=== PATIENT | male | born 1940 | race Caucasian/White ===

== ENCOUNTER 2022-02-23 13:36 | Inpatient (IN) ==
[2022-02-23] MEDS ORDERED: SODIUM CHLORIDE 0.9% 1000ML 1,000 ML IV ONE (14:11)
--- NOTE | 2022-02-23 14:11 | Emergency Department Note ---
Impression & Plan Abdominal abscess, Abdominal pain, Leukocytosis ED Provider Note NAME: ANTONIO ALVAREZ AGE: 81 SEX: M : 1940 ARRIVES VIA: Walk-In INFORMANT: Patient ED PROVIDER(S): Mahendra Lozano DO CHIEF COMPLAINT: Weakness HPI: Patient is an 81-year-old male who presents to the ER for cough, congestion, and runny nose which started about 10 days ago. He also started to have right lower quadrant infraumbilical abdominal pain over the same time. Associate with nausea but no vomiting. Pain is worse with movement improves with rest. Denies any dysuria, urgency, or frequency. Describes as a crampy pain 5 out of 10 which is constant. He also has diffuse myalgias and arthralgias. Denies any recorded fevers but does admit to feeling hot previously. No other sick contacts. He has lost his appetite. Does have a negative COVID test at home. No open wounds or sores. No tick bites. ROS: See above HPI for pertinent positives & negatives. A total of 10 systems reviewed and were otherwise negative. PAST MEDICAL HISTORY:See Below PAST SURGICAL HISTORY:See Below FAMILY HISTORY:See Below SOCIAL HISTORY:See Below HOME MEDICATIONS:See Below ALLERGIES:See Below VITALS:See Below PHYSICAL EXAMINATION: GENERAL: Sitting up in bed, alert, well appearing, well nourished, no distress, non-toxic EYE EXAM: normal conjunctiva. OROPHARYNX: no exudate, no erythema, lips, buccal mucosa, and tongue normal and mucous membranes are moist NECK: supple, no nuchal rigidity, no adenopathy, non-tender LUNGS: Clear to auscultation. Normal chest wall mechanics HEART: no murmurs, S1 normal and S2 normal ABDOMEN: abdomen soft, TTP in RLQ, normo-active bowel sounds, no masses, no rebound or guarding. UPPER EXTREMITIES: upper extremities are grossly normal. LOWER EXTREMITIES: No pitting edema. NEURO EXAM: Normal sensorium, cranial nerves II-XII grossly intact, normal speec h, no gross weakness of arms, no gross weakness of legs. MEDICAL DECISION MAKING: Patient is an 81-year-old male who presents ER with above-stated complaint. IV was established blood work was obtained. Show leukocytosis 12,000. No anemia. BMP with mild transaminitis. T bili not up. Troponin negative. Lipase is normal. UA was clean. Lyme and COVID were negative. CT abdomen pelvis shows right lower quadrant abdominal abscess. This was discussed with general surgery who recommended admission to the hospitalist for further evaluation. Given IV fluids and Zosyn. Discussed with Pt concerning signs and symptoms to watch out for. Pt was instructed to follow up with their PCP and discussed with the patient their option to return to the ED at anytime for persistent or worsening symptoms. The appropriate anticipatory guidance and out-patient management, inc luding indications for return to the emergency department, were explained at length to the patient and understood. Triage Nursing notes reviewed. Limited review of prior medical records performed Vital Signs: reviewed and remarkable for no significant abnormalities Differential diagnosis: Differential diagnoses includes but is not limited to gastritis, peptic ulcer disease, GERD, gallbladder disease, pancreatitis, small bowel obstruction, acute coronary syndrome, pericarditis, ischemic bowel, irritable bowel disease, irritable bowel syndrome, appendicitis, diverticulitis, malignancy, hernia, urinary tract infection, torsion, perforation, trauma, infectious. ER treatment provided: See below Diagnostics interpreted by me: ECG: Sinus rhythm rate of 67 Normal axis No PVCs First-degree AV block Cardiac Monitoring: An order was placed for continuous cardiac monitoring. The monitor shows a rate of 70 with sinus rhythm. Laboratory studies: As stated above and show below. Imaging studies: CT Abdomen pelvis as described above Consultation(s): Discussed with Dr. Jose Raul Hyatt for further evaluation Discussed with Dr. Dodge from general surgery who recommended admission to the hospital service Procedures: none Critical Care: None Past Med/Surg History Social History Smoking Status: Never smoker Preferred Language: Welsh Feels Safe at Home: Yes Allergies Allergies Allergy/AdvReac Type Severity Reaction Status Date / Time No Known Allergies Allergy Unverified 02/23/22 18:07 Home Meds Home Medications Medication Instructions Recorded Confirmed Ocuvite 02/23/22 amlodipine 10 mg tablet mg DAILY 02/23/22 apixaban 5 mg tablet (Eliquis) mg BID 02/23/22 atorvastatin 20 mg tablet mg DAILY 02/23/22 lisinopril 20 mg tablet mg DAILY 02/23/22 Results & Data (ED) Vital Signs Vital Signs - 24 hr 02/23/22 13:37 02/23/22 14:27 02/23/22 14:27 Temperature 36.4 C L Temperature Source Temporal Artery Scan Pulse Rate 80 Pulse Rate [Apical] 73 Respiratory Rate 16 18 Respiratory Effort / Characteristics Non-Labored Spontaneous Non-Labored Spontaneous Respiratory Depth Normal Normal Respiratory Pattern Regular Blood Pressure 134/68 Blood Pressure [Right Arm] 135/64 Blood Pressure Mean 90 Blood Pressure Mean [Right Arm] 87 Blood Pressure Position Sitting Blood Pressure Position [Right Arm] Pulse Oximetry 99 98 98 Oxygen Delivery Method Room Air Room Air Room Air Sepsis Recent Fever Within 48 Hours No Sepsis New/Unexplained Change in Mental Status No Sepsis Action Taken by Nursing No Action Required 02/23/22 15:32 02/23/22 16:36 02/23/22 18:19 Temperature Temperature Source Pulse Rate Pulse Rate [Apical] 71 69 62 Respiratory Rate 16 18 16 Respiratory Effort / Characteristics Non-Labored Spontaneous Non-Labored Spontaneous Non-Labored Spontaneous Respiratory Depth Normal Normal Normal Respiratory Pattern Blood Pressure Blood Pressure [Right Arm] 121/69 141/58 H 132/66 Blood Pressure Mean Blood Pressure Mean [Right Arm] 86 85 88 Blood Pressure Position Blood Pressure Position [Right Arm] Lying Lying Pulse Oximetry 96 97 95 Oxygen Delivery Method Room Air Room Air Sepsis Recent Fever Within 48 Hours Sepsis New/Unexplained Change in Mental Status Sepsis Action Taken by Nursing Laboratory Data Result diagrams: 02/23/22 14:11 02/23/22 14:11 Lab Results 02/23/22 02/23/22 02/23/22 Range/Units 14:09 14:11 14:11 WBC 11.92 H (4.8-10.8) K/ul RBC 4.28 L (4.63-6.08) M/uL Hgb 13.5 L (14.0-18.0) g/dl Hct 37.5 L (40.1-51.0) % MCV 87.6 (80.0-100.0) fL MCH 31.5 (25.0-34.0) pg MCHC 36.0 (32.0-36.0) g/dL RDW Std Deviation 39.4 (36.4-46.3) fL RDW Coeff of Hayley 12.2 (11.5-14.5) % Plt Count 335 (130-400) K/uL MPV 11.0 (9.4-12.4) fL Immature Gran % (Auto) 0.3 % Neut % (Auto) 88.1 % Lymph % (Auto) 5.3 % Glasscock % (Auto) 5.6 % Eos % (Auto) 0.4 % Baso % (Auto) 0.3 % Neut # (Auto) 10.50 H (1.4-6.5) K/uL Lymph # (Auto) 0.63 L (1.2-3.4) K/uL Glasscock # (Auto) 0.67 (0.24-0.82) K/uL Eos # (Auto) 0.05 (0-0.50) K/uL Baso # (Auto) 0.03 (0-0.2) K/uL Immature Gran # (Auto) 0.04 H (0.00-0.02) K/uL Sodium 138 (136-145) mmol/L Potassium 4.2 (3.5-5.1) mmol/L Chloride 104 (98-107) mmol/L Carbon Dioxide 27 (21-32) mmol/L Anion Gap 7 (3-11) BUN 27 H (6-23) mg/dl Creatinine 1.12 (0.6-1.4) mg/dl Est Cr Clr Drug Dosing 42.3 ml/min Est GFR ( Amer) 71.5 ml/min Est GFR (Non-Af Amer) 61.7 ml/min BUN/Creatinine Ratio 24.1 H (10-20) Glucose 127 H (70-99(Fasting)) mg/dl Calcium 9.0 (8.5-10.1) mg/dl Total Bilirubin 0.8 (0.2-1.0) mg/dl AST 90 H (13-39) U/L ALT 223 H (7-52) U/L Alkaline Phosphatase 163 H (34-104) U/L Troponin I High Sens 14.6 (0-20) pg/ml C-Reactive Protein (0-0.5) mg/dl Total Protein 7.2 (6.0-8.3) gm/dl Albumin 3.4 (3.4-5.0) gm/dl Globulin 3.8 (2.5-4.0) gm/dl Albumin/Globulin Ratio 0.9 (0.9-2) Lipase (11-82) U/L TSH (0.300-4.500) uIu/ml Urine Color Yellow Urine Appearance Clear (Clear) Urine pH 5.0 (4.5-7.5) Ur Specific Disney 1.018 (1.000-1.030) Urine Protein 1+ H (Negative) Urine Glucose (UA) Negative (Negative) Urine Ketones Negative (Negative) Urine Blood Negative (Negative) Urine Nitrite Negative (Negative) Urine Bilirubin Negative (Negative) Urine Urobilinogen Negative (Negative) Ur Leukocyte Esterase Negative (Negative) Urine WBC (Auto) 1-5 (0-5) /hpf Urine RBC (Auto) 0-4 (0-4) /hpf U Hyaline Cast (Auto) 1-5 (0-5) /lpf U Epithel Cells (Auto) 5-10 H (0-5) /lpf Urine Bacteria (Auto) Negative (Negative) Lyme Disease IgG Ab (Negative) Lyme Disease IgM Ab (Negative) SARS-CoV-2, RNA, NAAT (NEGATIVE) 02/23/22 02/23/22 02/23/22 Range/Units 14:11 14:11 14:11 WBC (4.8-10.8) K/ul RBC (4.63-6.08) M/uL Hgb (14.0-18.0) g/dl Hct (40.1-51.0) % MCV (80.0-100.0) fL MCH (25.0-34.0) pg MCHC (32.0-36.0) g/dL RDW Std Deviation (36.4-46.3) fL RDW Coeff of Hayley (11.5-14.5) % Plt Count (130-400) K/uL MPV (9.4-12.4) fL Immature Gran % (Auto) % Neut % (Auto) % Lymph % (Auto) % Glasscock % (Auto) % Eos % (Auto) % Baso % (Auto) % Neut # (Auto) (1.4-6.5) K/uL Lymph # (Auto) (1.2-3.4) K/uL Glasscock # (Auto) (0.24-0.82) K/uL Eos # (Auto) (0-0.50) K/uL Baso # (Auto) (0-0.2) K/uL Immature Gran # (Auto) (0.00-0.02) K/uL Sodium (136-145) mmol/L Potassium (3.5-5.1) mmol/L Chloride (98-107) mmol/L Carbon Dioxide (21-32) mmol/L Anion Gap (3-11) BUN (6-23) mg/dl Creatinine (0.6-1.4) mg/dl Est Cr Clr Drug Dosing ml/min Est GFR ( Amer) ml/min Est GFR (Non-Af Amer) ml/min BUN/Creatinine Ratio (10-20) Glucose (70-99(Fasting)) mg/dl Calcium (8.5-10.1) mg/dl Total Bilirubin (0.2-1.0) mg/dl AST (13-39) U/L ALT (7-52) U/L Alkaline Phosphatase (34-104) U/L Troponin I High Sens (0-20) pg/ml C-Reactive Protein (0-0.5) mg/dl Total Protein (6.0-8.3) gm/dl Albumin (3.4-5.0) gm/dl Globulin (2.5-4.0) gm/dl Albumin/Globulin Ratio (0.9-2) Lipase 7 L (11-82) U/L TSH 1.991 (0.300-4.500) uIu/ml Urine Color Urine Appearance (Clear) Urine pH (4.5-7.5) Ur Specific Disney (1.000-1.030) Urine Protein (Negative) Urine Glucose (UA) (Negative) Urine Ketones (Negative) Urine Blood (Negative) Urine Nitrite (Negative) Urine Bilirubin (Negative) Urine Urobilinogen (Negative) Ur Leukocyte Esterase (Negative) Urine WBC (Auto) (0-5) /hpf Urine RBC (Auto) (0-4) /hpf U Hyaline Cast (Auto) (0-5) /lpf U Epithel Cells (Auto) (0-5) /lpf Urine Bacteria (Auto) (Negative) Lyme Disease IgG Ab Negative (Negative) Lyme Disease IgM Ab Negative (Negative) SARS-CoV-2, RNA, NAAT (NEGATIVE) 02/23/22 02/23/22 Range/Units 14:11 14:26 WBC (4.8-10.8) K/ul RBC (4.63-6.08) M/uL Hgb (14.0-18.0) g/dl Hct (40.1-51.0) % MCV (80.0-100.0) fL MCH (25.0-34.0) pg MCHC (32.0-36.0) g/dL RDW Std Deviation (36.4-46.3) fL RDW Coeff of Hayley (11.5-14.5) % Plt Count (130-400) K/uL MPV (9.4-12.4) fL Immature Gran % (Auto) % Neut % (Auto) % Lymph % (Auto) % Glasscock % (Auto) % Eos % (Auto) % Baso % (Auto) % Neut # (Auto) (1.4-6.5) K/uL Lymph # (Auto) (1.2-3.4) K/uL Glasscock # (Auto) (0.24-0.82) K/uL Eos # (Auto) (0-0.50) K/uL Baso # (Auto) (0-0.2) K/uL Immature Gran # (Auto) (0.00-0.02) K/uL Sodium (136-145) mmol/L Potassium (3.5-5.1) mmol/L Chloride (98-107) mmol/L Carbon Dioxide (21-32) mmol/L Anion Gap (3-11) BUN (6-23) mg/dl Creatinine (0.6-1.4) mg/dl Est Cr Clr Drug Dosing ml/min Est GFR ( Amer) ml/min Est GFR (Non-Af Amer) ml/min BUN/Creatinine Ratio (10-20) Glucose (70-99(Fasting)) mg/dl Calcium (8.5-10.1) mg/dl Total Bilirubin (0.2-1.0) mg/dl AST (13-39) U/L ALT (7-52) U/L Alkaline Phosphatase (34-104) U/L Troponin I High Sens (0-20) pg/ml C-Reactive Protein 18.36 H (0-0.5) mg/dl Total Protein (6.0-8.3) gm/dl Albumin (3.4-5.0) gm/dl Globulin (2.5-4.0) gm/dl Albumin/Globulin Ratio (0.9-2) Lipase (11-82) U/L TSH (0.300-4.500) uIu/ml Urine Color Urine Appearance (Clear) Urine pH (4.5-7.5) Ur Specific Disney (1.000-1.030) Urine Protein (Negative) Urine Glucose (UA) (Negative) Urine Ketones (Negative) Urine Blood (Negative) Urine Nitrite (Negative) Urine Bilirubin (Negative) Urine Urobilinogen (Negative) Ur Leukocyte Esterase (Negative) Urine WBC (Auto) (0-5) /hpf Urine RBC (Auto) (0-4) /hpf U Hyaline Cast (Auto) (0-5) /lpf U Epithel Cells (Auto) (0-5) /lpf Urine Bacteria (Auto) (Negative) Lyme Disease IgG Ab (Negative) Lyme Disease IgM Ab (Negative) SARS-CoV-2, RNA, NAAT NEGATIVE (NEGATIVE) Administered Medications Discontinued Medications Sodium Chloride (Nss 1000ml) 1,000 mls @ 999 mls/hr IV .Q1H1M ONE Stop: 02/23/22 15:11 Last Infusion: 02/23/22 15:31 Dose: 0 mls/hr Documented By: Admin: 02/23/22 14:29 Dose: 999 mls/hr Documented By: BALBIR Piperacillin Sod/Tazobactam Sod (Zosyn) 4.5 gm in 120 mls @ 240 mls/hr IV NOW ONE Stop: 02/23/22 18:11 Last Infusion: 02/23/22 18:38 Dose: 0 mls/hr Documented By: Admin: 02/23/22 18:06 Dose: 240 mls/hr Documented By: BALBIR Ioversol (Optiray 300 100ml) 89 ml IV ONCE ONE Stop: 02/23/22 16:19 Last Admin: 02/23/22 16:18 Dose: 89 ml Documented By: EDK Imaging Data Radiologist's Impression: Chest X-Ray 02/23/22 13:52 XR chest 1V portable CLINICAL HISTORY: weakness. Evaluate cardiopulmonary status COMPARISON STUDY: No previous studies for comparison. TECHNIQUE: 1 view of the chest FINDINGS: Single frontal view of the chest demonstrates the heart to be enlarged status post previous cardiothoracic surgery and pacer placement. The lungs are clear of alveolar opacities. There is no evidence for pleural effusion. There is no evidence for vascular congestion. There is no acute osseous pathology. IMPRESSION: 1. No acute cardiopulmonary disease. 2. Cardiomegaly status post previous cardiothoracic surgery and pacer placement. ACT 112: Negative or not required by law. Electronically signed by: Paulo Massey M.D. 02/23/2022 2:38 PM Abdomen/Pelvis CT 02/23/22 14:13 CT abd pelvis IV con only CLINICAL HISTORY: abd pain rlq COMPARISON STUDY: No previous studies for comparison. CT DOSE: 423.17 mGycm TECHNIQUE: Standard CT of the Abdomen and Pelvis was performed with IV contrast. A dose lowering technique was utilized adhering to the principles of ALARA. Contrast Volume: Optiray 300, 89 ml. The patient did not receive oral contrast. FINDINGS: Lung base: The heart is mildly enlarged with pacer in place. There is right basilar atelectasis/scarring present. Abdominal cavity: There is no evidence for abdominal mass, adenopathy or ascites. Liver: There is homogeneous attenuation of the liver parenchyma. There is no evidence for enhancing mass lesion. Spleen: There is homogeneous attenuation of the splenic parenchyma. There is no enhancing mass lesion. Pancreas: There is homogeneous attenuation of the pancreatic parenchyma. There is no evidence for mass lesion or peripancreatic fluid collection. Gall Bladder: The gallbladder is well distended with no evidence for intraluminal calculi, wall thickening or pericholecystic edema. Adrenal glands: The adrenal glands are normal in size and attenuation. There is no evidence for enhancing mass lesion. Kidneys: There is homogeneous attenuation of the renal parenchyma bilaterally. There is a 2 mm nonobstructing right renal calculus. There is no evidence for left renal calculus or hydronephrosis bilaterally. There is no evidence for enhancing mass. Bowel: The bowel loops are normally placed within the abdomen and pelvis without evidence for dilatation or obstruction. There is no evidence for mass lesion. There is mild fecal stasis present involving the right side of the colon. There are no inflammatory changes present. There is no evidence for free air. Bladder: The bladder is within normal limits with no evidence for focal mass, calculus or diverticulum. : There is a walled off, enhancing fluid collection present within the right lower quadrant with surrounding edematous changes present. The findings are most characteristic of an abscess. There is no evidence for pelvic ascites. Vasculature: There is no evidence for aneurysmal dilatation of the abdominal aorta. Atherosclerotic calcification is present. Osseous structures: There is no acute osseous pathology. Mild degenerative ch anges are seen within the spine. IMPRESSION: 1. Evidence for a walled off, enhancing fluid collection within the right lower quadrant with surrounding edematous changes present. The findings are most characteristic of an abscess. 2. Mild fecal stasis. 3. 2 mm nonobstructing right renal calculus. 4. Additional nonacute findings are delineated above. ACT 112: Negative or not required by law. Electronically signed by: Paulo Massey M.D. 02/23/2022 4:59 PM Discharge Plan Visit Data Chief Complaint: Illness Stated Complaint: FATIGUE, BODY ACHES ED Provider: Mahendra Lozano Discharge Problem: Abdominal abscess, Abdominal pain, Leukocytosis Forms Stand Alone Forms: My [facility] [place] [address] Prescriptions Prescriptions: No Action lisinopril 20 mg tablet DAILY amlodipine 10 mg tablet DAILY Eliquis 5 mg tablet BID atorvastatin 20 mg tablet DAILY Ocuvite Referrals Referrals: Gage Saul M.D. [Primary Care Provider] -
[2022-02-23 14:30] LABS: Basophils # (auto) 0.03 K/uL (0-0.2); Basophils % (auto) 0.3 %; Eosinophils # (auto) 0.05 K/uL (0-0.50); Eosinophils % (auto) 0.4 %; Hematocrit (blood only) 37.5 % (40.1-51.0); Hemoglobin 13.5 g/dl (14.0-18.0); Immature Granulocytes # (auto) 0.04 K/uL (0.00-0.02); Immature Granulocytes % (auto) 0.3 %; Lymphocytes # (auto) 0.63 K/uL (1.2-3.4); Lymphocytes % (auto) 5.3 %; Mean Corpuscular Hemoglobin 31.5 pg (25.0-34.0); Mean Corpuscular Volume 87.6 fL (80.0-100.0); Monocytes # (auto) 0.67 K/uL (0.24-0.82); Monocytes % (auto) 5.6 %; Neutrophils % (auto) 88.1 %; Platelet Count 335 K/uL (130-400); RDW Coefficient of Variation 12.2 % (11.5-14.5); RDW Standard Deviation 39.4 fL (36.4-46.3); Red Blood Count 4.28 M/uL (4.63-6.08); White Blood Count 11.92 K/ul (4.8-10.8)
--- NOTE | 2022-02-23 14:39 | XRay Report ---
XR chest 1V portable CLINICAL HISTORY: weakness. Evaluate cardiopulmonary status COMPARISON STUDY: No previous studies for comparison. TECHNIQUE: 1 view of the chest FINDINGS: Single frontal view of the chest demonstrates the heart to be enlarged status post previous cardiotho racic surgery and pacer placement. The lungs are clear of alveolar opacities. There is no evidence fo r pleural effusion. There is no evidence for vascular congestion. There is no acute osseous pathology . IMPRESSION: 1. No acute cardiopulmonary disease. 2. Cardiomegaly status post previous cardiothoracic surgery and pacer placement. ACT 112: Negative or not required by law. Electronically signed by: Paulo Massey M.D. 02/23/2022 2:38 PM
[2022-02-23 14:50] LABS: Albumin Globulin Ratio 0.9 (0.9-2); Albumin Level 3.4 gm/dl (3.4-5.0); BUN Creatinine Ratio 24.1 (10-20); Bilirubin,Total 0.8 mg/dl (0.2-1.0); Creatinine Clr Calc Pharmacy 42.3 ml/min; Est GFR (African American) 71.5 ml/min; Est GFR (Non-African American) 61.7 ml/min; Globulin 3.8 gm/dl (2.5-4.0); Potassium 4.2 mmol/L (3.5-5.1); Total Protein 7.2 gm/dl (6.0-8.3)
[2022-02-23 14:54] LABS: Appearance Urine Clear (Clear); Bacteria Urine Automated Negative (Negative); Bilirubin Urine Negative (Negative); Blood Urine Negative (Negative); Color Urine Yellow; Glucose Urine UA Negative (Negative); Ketones Urine Negative (Negative); Leukocyte Esterase Urine Negative (Negative); Nitrite Urine Negative (Negative); Protein Urine 1+ (Negative); RBC Urine Automated 0-4 /hpf (0-4); Specific Gravity Urine 1.018 (1.000-1.030); Urobilinogen Urine Negative (Negative)
[2022-02-23 14:56] LABS: Troponin I High Sensitivity 14.6 pg/ml (0-20)
[2022-02-23 15:18] LABS: Lyme Ab IgG w/WB Rflx Negative (Negative); Lyme Ab IgM w/WB Rflx Negative (Negative)
[2022-02-23] MEDS ORDERED: OPTIRAY 300 100mL IV ONE (16:18)
--- NOTE | 2022-02-23 17:02 | CT Scan Report ---
CT abd pelvis IV con only CLINICAL HISTORY: abd pain rlq COMPARISON STUDY: No previous studies for comparison. CT DOSE: 423.17 mGycm TECHNIQUE: Standard CT of the Abdomen and Pelvis was performed with IV contrast. A dose lowering helio hnique was utilized adhering to the principles of ALARA. Contrast Volume: Optiray 300, 89 ml. The patient did not receive oral contrast. FINDINGS: Lung base: The heart is mildly enlarged with pacer in place. There is right basilar atelectasis/scarr ing present. Abdominal cavity: There is no evidence for abdominal mass, adenopathy or ascites. Liver: There is homogeneous attenuation of the liver parenchyma. There is no evidence for enhancing m ass lesion. Spleen: There is homogeneous attenuation of the splenic parenchyma. There is no enhancing mass lesion . Pancreas: There is homogeneous attenuation of the pancreatic parenchyma. There is no evidence for mas s lesion or peripancreatic fluid collection. Gall Bladder: The gallbladder is well distended with no evidence for intraluminal calculi, wall thick ening or pericholecystic edema. Adrenal glands: The adrenal glands are normal in size and attenuation. There is no evidence for enhan cing mass lesion. Kidneys: There is homogeneous attenuation of the renal parenchyma bilaterally. There is a 2 mm nonobs tructing right renal calculus. There is no evidence for left renal calculus or hydronephrosis bilater ally. There is no evidence for enhancing mass. Bowel: The bowel loops are normally placed within the abdomen and pelvis without evidence for dilatat ion or obstruction. There is no evidence for mass lesion. There is mild fecal stasis present involvin g the right side of the colon. There are no inflammatory changes present. There is no evidence for fr ee air. Bladder: The bladder is within normal limits with no evidence for focal mass, calculus or diverticulu m. : There is a walled off, enhancing fluid collection present within the right lower quadrant with salas rrounding edematous changes present. The findings are most characteristic of an abscess. There is no evidence for pelvic ascites. Vasculature: There is no evidence for aneurysmal dilatation of the abdominal aorta. Atherosclerotic c alcification is present. Osseous structures: There is no acute osseous pathology. Mild degenerative changes are seen within th e spine. IMPRESSION: 1. Evidence for a walled off, enhancing fluid collection within the right lower quadrant with surroun ding edematous changes present. The findings are most characteristic of an abscess. 2. Mild fecal stasis. 3. 2 mm nonobstructing right renal calculus. 4. Additional nonacute findings are delineated above. ACT 112: Negative or not required by law. Electronically signed by: Paulo Massey M.D. 02/23/2022 4:59 PM
[2022-02-23] MEDS ORDERED: PIPERACILLIN/TAZOBACTAM 4.5 GM/120 ML BAG IV ONE (17:42)
--- NOTE | 2022-02-23 20:06 | History & Physical Report ---
Date of Service February 23, 2022 Assessment & Plan (1) Abdominal abscess: Plan: Fluid collection in the right lower quadrant with CT scan of abdomen and pelvis consistent with abscess - Without evidence of diverticular perforation noted on CT scan with prior surgical history of hernia repairs - WBC mildly elevated, with elevated NLR 5:1, PCT 0.51 - blood cultures pending - CRP elevated at 18.36 - Continue Zosyn - Surgical consultation - NPO after midnight, LR at midinight at 80ml/hr for one liter - His last dose of Eliquis [id number] in the AM- hold eliquis- Lovenox 30mg subq q12 for VTE prophy (2) HLD (hyperlipidemia): Plan: Continue statin (3) HTN (hypertension): Plan: Usually well controlled - continue Reinier and Continue amlodopine as hemodynamics allow (4) CAD (coronary artery disease): Plan: History of CABG - continue statin - continue BP control - no symptoms of angina (5) Pacemaker: Plan: Placed 2014 for complete heart block reported by patient - no acute needs (6) Chronic anticoagulation: Plan: For DVT x2 following surgeries - on Eliquis as outpatient- hold - DVT prophy with SCDs and Lovenox 30mg subq q12 (7) Constipation: Plan: Normally stays with fiber, prunes, and miralax worsening since his abdominal pain has gotten worse - add bowel regimine (8) Transaminitis: Plan: No RUQ abdominal pain and normal bili - no evidence of pathology on CT scan of abdomen - possibly reactionary to infection - follow with CMP in am History of Present Illness Primary Care Provider: Gage Saul 81 YOM with medical history of: CABG(1995 [facility]), Pacemaker insertion 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 Patient comes to the hospital for 10 day history of right lower quad abdominal pain, fevers, and fatigue. Patient states that he noticed the pain getting worse over the past 10 days, but was tolerable. He reports that yesterday it got worse and completely "wiped him out". He endorses fevers over the past 48 hours feeling hot and waking up in sweats for the past 3-4 days. Patient endorses that since his last hernia repair in 09/03 and 11/01 that he has noticed the pain in his right lower quadrant and just never felt right after that. Patient has history of 2 inguinal hernia repairs, and 1 umbilical hernia repair with redo 11/01. Patient has received all his surgical care at [facility] with Dr. Danielson and Katya. Patient states that he normally remains active and lifting wood and yard debris without any difficulty. He denies having onset of worsening pain with doing any work or lifting. In the EMD the patient had routine labs performed. He had CT scan of his abdomen/pelvis with IV contrast. This resulted with characteristics of a likely abscess in the right lower quadrant, roughly 4x3. Patient is tender in the area. Patient was given Zosyn. Hospitalist was consulted for admission. Blood cultures were then ordered. CRP and Lactate ordered as well as PCT. Surgery continuous improvement engineer discussed with EMD provider and admission recommended. Patient will be admitted continue IV abx await culture results, will make NPO after MN with surgical consultation. Will hold his Eliquis and place on BID Lovenox VTE prophy dose. Patient is physically active which he reports doing brisk yard work with lifting. He has not had any chest pain or dyspnea with this. COVID test on admission is: NEGATIVE Allergies Allergy/AdvReac Type Severity Reaction Status Date / Time No Known Allergies Allergy Unverified 02/23/22 18:07 Home Medications Medication Instructions Recorded Confirmed Type Ocuvite 1 tab PO QAM 02/23/22 02/23/22 History amlodipine 10 mg tablet 10 mg DAILY 02/23/22 02/23/22 History apixaban 5 mg tablet (Eliquis) 5 mg BID 02/23/22 02/23/22 History atorvastatin 20 mg tablet mg DAILY 02/23/22 History lisinopril 20 mg tablet 10 mg DAILY 02/23/22 02/23/22 History Past Med/Surg History Medical History CAD (coronary artery disease) Chronic anticoagulation Constipation DVT of leg (deep venous thrombosis) HLD (hyperlipidemia) HTN (hypertension) Pacemaker Pacemaker Surgical History (Updated 02/23/22 @ 20:11 by STAN Blunt) H/O hernia repair H/O knee surgery History of appendectomy Hx of CABG Family History (Updated 02/23/22 @ 20:11 by STAN Blunt) Other Family history non-contributory Social History Smoking Status: Never smoker Hx Alcohol Use: No Hx Substance Use: No Preferred Language: Japanese Communication Ability: Effective Compensation Coordinator Required: No Beliefs That Will Affect Care: None Current Living Situation: Spouse Current Living Situation Comment: lives in 2 story home with Other Information That Helps Us Care for You: No Feels Safe at Home: Yes Safety Concerns: Feels Safe At This Time Assistive Devices: Glasses Review of Systems Review of Systems: REVIEW OF SYSTEMS: Constitutional: (+) fever, sweats or chills Eyes: No diplopia, no worsening or blurred vision ENT: normal hearing, no trouble swallowing Respiratory: No cough, sputum, dyspnea at rest or on exertion Cardiovascular: No chest pain, tightness or palpitations Abdomen: (+) pain, nausea, constipation, no vomiting, diarrhea Musculoskeletal: No joint pain, calf pain, swelling Neurologic: No weakness, numbness/tingling, or balance problems Psychiatric: No anxiety or depression Skin: No rash or itch Physical Exam Physical Exam: PHYSICAL EXAM: General: awake, alert, fatigued appearing male Head: Normocephalic, atraumatic ENT: PERRLA, EOMI, no pharyngeal exudate, mucous membranes dry Neuro: AAO x 3, speech clear and appropriate, strength intact bilaterally 5/5, sensation intact and equal all extremities and dermatomes, no pronator drift Chest: equal rise and fall of the chest, no accessory muscle use, no heaves or thrills, Clear to auscultation, on room air, Cardiac: Regular rate and rhythm, telemetry reviewed, skin warm dry, cap refill <3 seconds, peripheral pulses +2 no JVD, no murmur, no edema GI: NABS x 4 quadrants, soft, tender to palpation right groin, no palpable mass, no rebound : Spontaneously voiding, no pain, no CVA tenderness, Extremities: Normal inspection, no peripheral edema or erythema, calfs nontender to palpation Psych: Normal mood and affect Skin: no rash or erythema Results & Data Results & Data ([facility]) Vital Signs (Past 12 Hours) Vital Signs Temp Pulse Pulse Resp BP BP Pulse Ox 02/23/22 18:19 62 16 132/66 95 02/23/22 16:36 69 18 141/58 H 97 02/23/22 15:32 71 16 121/69 96 02/23/22 14:27 98 02/23/22 14:27 73 18 135/64 98 02/23/22 13:37 36.4 C L 80 16 134/68 99 O2 Del Method 02/23/22 18:19 Room Air 02/23/22 16:36 02/23/22 15:32 Room Air 02/23/22 14:27 Room Air 02/23/22 14:27 Room Air 02/23/22 13:37 Room Air Laboratory Results Laboratory Results - last 24 hr 02/23/22 02/23/22 02/23/22 14:09 14:11 14:11 WBC 11.92 H RBC 4.28 L Hgb 13.5 L Hct 37.5 L MCV 87.6 MCH 31.5 MCHC 36.0 RDW Std Deviation 39.4 RDW Coeff of Hayley 12.2 Plt Count 335 MPV 11.0 Immature Gran % (Auto) 0.3 Neut % (Auto) 88.1 Lymph % (Auto) 5.3 Lee % (Auto) 5.6 Eos % (Auto) 0.4 Baso % (Auto) 0.3 Neut # (Auto) 10.50 H Lymph # (Auto) 0.63 L Lee # (Auto) 0.67 Eos # (Auto) 0.05 Baso # (Auto) 0.03 Immature Gran # (Auto) 0.04 H Sodium 138 Potassium 4.2 Chloride 104 Carbon Dioxide 27 Anion Gap 7 BUN 27 H Creatinine 1.12 Est Cr Clr Drug Dosing 42.3 Est GFR ( Amer) 71.5 Est GFR (Non-Af Amer) 61.7 BUN/Creatinine Ratio 24.1 H Glucose 127 H Lactate Calcium 9.0 Total Bilirubin 0.8 AST 90 H ALT 223 H Alkaline Phosphatase 163 H Troponin I High Sens 14.6 C-Reactive Protein Total Protein 7.2 Albumin 3.4 Globulin 3.8 Albumin/Globulin Ratio 0.9 Lipase Procalcitonin TSH Urine Color Yellow Urine Appearance Clear Urine pH 5.0 Ur Specific [place] 1.018 Urine Protein 1+ H Urine Glucose (UA) Negative Urine Ketones Negative Urine Blood Negative Urine Nitrite Negative Urine Bilirubin Negative Urine Urobilinogen Negative Ur Leukocyte Esterase Negative Urine WBC (Auto) 1-5 Urine RBC (Auto) 0-4 U Hyaline Cast (Auto) 1-5 U Epithel Cells (Auto) 5-10 H Urine Bacteria (Auto) Negative Lyme Disease IgG Ab Lyme Disease IgM Ab SARS-CoV-2, RNA, NAAT 02/23/22 02/23/22 02/23/22 14:11 14:11 14:11 WBC RBC Hgb Hct MCV MCH MCHC RDW Std Deviation RDW Coeff of Hayley Plt Count MPV Immature Gran % (Auto) Neut % (Auto) Lymph % (Auto) Lee % (Auto) Eos % (Auto) Baso % (Auto) Neut # (Auto) Lymph # (Auto) Lee # (Auto) Eos # (Auto) Baso # (Auto) Immature Gran # (Auto) Sodium Potassium Chloride Carbon Dioxide Anion Gap BUN Creatinine Est Cr Clr Drug Dosing Est GFR ( Amer) Est GFR (Non-Af Amer) BUN/Creatinine Ratio Glucose Lactate Calcium Total Bilirubin AST ALT Alkaline Phosphatase Troponin I High Sens C-Reactive Protein Total Protein Albumin Globulin Albumin/Globulin Ratio Lipase 7 L Procalcitonin TSH 1.991 Urine Color Urine Appearance Urine pH Ur Specific [place] Urine Protein Urine Glucose (UA) Urine Ketones Urine Blood Urine Nitrite Urine Bilirubin Urine Urobilinogen Ur Leukocyte Esterase Urine WBC (Auto) Urine RBC (Auto) U Hyaline Cast (Auto) U Epithel Cells (Auto) Urine Bacteria (Auto) Lyme Disease IgG Ab Negative Lyme Disease IgM Ab Negative SARS-CoV-2, RNA, NAAT 02/23/22 02/23/22 02/23/22 14:11 14:20 14:26 WBC RBC Hgb Hct MCV MCH MCHC RDW Std Deviation RDW Coeff of Hayley Plt Count MPV Immature Gran % (Auto) Neut % (Auto) Lymph % (Auto) Lee % (Auto) Eos % (Auto) Baso % (Auto) Neut # (Auto) Lymph # (Auto) Lee # (Auto) Eos # (Auto) Baso # (Auto) Immature Gran # (Auto) Sodium Potassium Chloride Carbon Dioxide Anion Gap BUN Creatinine Est Cr Clr Drug Dosing Est GFR ( Amer) Est GFR (Non-Af Amer) BUN/Creatinine Ratio Glucose Lactate Calcium Total Bilirubin AST ALT Alkaline Phosphatase Troponin I High Sens C-Reactive Protein 18.36 H Total Protein Albumin Globulin Albumin/Globulin Ratio Lipase Procalcitonin 0.51 H TSH Urine Color Urine Appearance Urine pH Ur Specific [place] Urine Protein Urine Glucose (UA) Urine Ketones Urine Blood Urine Nitrite Urine Bilirubin Urine Urobilinogen Ur Leukocyte Esterase Urine WBC (Auto) Urine RBC (Auto) U Hyaline Cast (Auto) U Epithel Cells (Auto) Urine Bacteria (Auto) Lyme Disease IgG Ab Lyme Disease IgM Ab SARS-CoV-2, RNA, NAAT NEGATIVE 02/23/22 19:33 WBC RBC Hgb Hct MCV MCH MCHC RDW Std Deviation RDW Coeff of Hayley Plt Count MPV Immature Gran % (Auto) Neut % (Auto) Lymph % (Auto) Lee % (Auto) Eos % (Auto) Baso % (Auto) Neut # (Auto) Lymph # (Auto) Lee # (Auto) Eos # (Auto) Baso # (Auto) Immature Gran # (Auto) Sodium Potassium Chloride Carbon Dioxide Anion Gap BUN Creatinine Est Cr Clr Drug Dosing Est GFR ( Amer) Est GFR (Non-Af Amer) BUN/Creatinine Ratio Glucose Lactate 0.8 Calcium Total Bilirubin AST ALT Alkaline Phosphatase Troponin I High Sens C-Reactive Protein Total Protein Albumin Globulin Albumin/Globulin Ratio Lipase Procalcitonin TSH Urine Color Urine Appearance Urine pH Ur Specific [place] Urine Protein Urine Glucose (UA) Urine Ketones Urine Blood Urine Nitrite Urine Bilirubin Urine Urobilinogen Ur Leukocyte Esterase Urine WBC (Auto) Urine RBC (Auto) U Hyaline Cast (Auto) U Epithel Cells (Auto) Urine Bacteria (Auto) Lyme Disease IgG Ab Lyme Disease IgM Ab SARS-CoV-2, RNA, NAAT Diagnostic Findings Chest X-Ray 02/23/22 13:52 XR chest 1V portable CLINICAL HISTORY: weakness. Evaluate cardiopulmonary status COMPARISON STUDY: No previous studies for comparison. TECHNIQUE: 1 view of the chest FINDINGS: Single frontal view of the chest demonstrates the heart to be enlarged status post previous cardiothoracic surgery and pacer placement. The lungs are clear of alveolar opacities. There is no evidence for pleural effusion. There is no evidence for vascular congestion. There is no acute osseous pathology. IMPRESSION: 1. No acute cardiopulmonary disease. 2. Cardiomegaly status post previous cardiothoracic surgery and pacer placement. ACT 112: Negative or not required by law. Electronically signed by: Paulo Massey M.D. 02/23/2022 2:38 PM Abdomen/Pelvis CT 02/23/22 14:13 CT abd pelvis IV con only CLINICAL HISTORY: abd pain rlq COMPARISON STUDY: No previous studies for comparison. CT DOSE: 423.17 mGycm TECHNIQUE: Standard CT of the Abdomen and Pelvis was performed with IV contrast. A dose lowering technique was utilized adhering to the principles of ALARA. Contrast Volume: Optiray 300, 89 ml. The patient did not receive oral contrast. FINDINGS: Lung base: The heart is mildly enlarged with pacer in place. There is right basilar atelectasis/scarring present. Abdominal cavity: There is no evidence for abdominal mass, adenopathy or ascites. Liver: There is homogeneous attenuation of the liver parenchyma. There is no evidence for enhancing mass lesion. Spleen: There is homogeneous attenuation of the splenic parenchyma. There is no enhancing mass lesion. Pancreas: There is homogeneous attenuation of the pancreatic parenchyma. There is no evidence for mass lesion or peripancreatic fluid collection. Gall Bladder: The gallbladder is well distended with no evidence for intraluminal calculi, wall thickening or pericholecystic edema. Adrenal glands: The adrenal glands are normal in size and attenuation. There is no evidence for enhancing mass lesion. Kidneys: There is homogeneous attenuation of the renal parenchyma bilaterally. There is a 2 mm nonobstructing right renal calculus. There is no evidence for left renal calculus or hydronephrosis bilaterally. There is no evidence for enhancing mass. Bowel: The bowel loops are normally placed within the abdomen and pelvis without evidence for dilatation or obstruction. There is no evidence for mass lesion. There is mild fecal stasis present involving the right side of the colon. There are no inflammatory changes present. There is no evidence for free air. Bladder: The bladder is within normal limits with no evidence for focal mass, calculus or diverticulum. : There is a walled off, enhancing fluid collection present within the right lower quadrant with surrounding edematous changes present. The findings are most characteristic of an abscess. There is no evidence for pelvic ascites. Vasculature: There is no evidence for aneurysmal dilatation of the abdominal aorta. Atherosclerotic calcification is present. Osseous structures: There is no acute osseous pathology. Mild degenerative changes are seen within the spine. IMPRESSION: 1. Evidence for a walled off, enhancing fluid collection within the right lower quadrant with surrounding edematous changes present. The findings are most characteristic of an abscess. 2. Mild fecal stasis. 3. 2 mm nonobstructing right renal calculus. 4. Additional nonacute findings are delineated above. ACT 112: Negative or not required by law. Electronically signed by: Paulo Massey M.D. 02/23/2022 4:59 PM Medications Administered Discontinued Medications Sodium Chloride (Nss 1000ml) 1,000 mls @ 999 mls/hr IV .Q1H1M ONE Stop: 02/23/22 15:11 Last Infusion: 02/23/22 15:31 Dose: 0 mls/hr Documented By: Admin: 02/23/22 14:29 Dose: 999 mls/hr Documented By: BALBIR Piperacillin Sod/Tazobactam Sod (Zosyn) 4.5 gm in 120 mls @ 240 mls/hr IV NOW ONE Stop: 02/23/22 18:11 Last Infusion: 02/23/22 18:38 Dose: 0 mls/hr Documented By: Admin: 02/23/22 18:06 Dose: 240 mls/hr Documented By: BALBIR Ioversol (Optiray 300 100ml) 89 ml IV ONCE ONE Stop: 02/23/22 16:19 Last Admin: 02/23/22 16:18 Dose: 89 ml Documented By: EDK ECG Additional Comments: Sinus rhythm with 1st degree A-V block Otherwise normal ECG No previous ECGs available Code Status & VTE Plan Code Status CODE: FULL VTE: SCDS, Lovenox 30 mg sub q BID VTE Prophylaxis Plan VTE Prophylaxis will be ordered: Yes Supervising Physician Co-Signing Physician Notes Patient seen and examined, chart reviewed, case discussed with STAN Bradley and I agree with the assessment and plan as above. Has tenderness in RLQ without rebound, guarding or peritoneal signs. Has had multiple abdominal surgeries, hernia repairs/revision - last in October 2020 after which he reports he hasn't felt quite 100%. Patient found with abdominal collection suggestive of abscess. Afebrile, HD stable, NAD Non-toxic Abdomen soft, tender in RLQ Labs and images reviewed Assessment/Plan -follow cultures -Zosyn -Hold Eliquis for possible intervention -Appreciate surgical assistance -Remainder as above PG Care Time/CCT Total # of Minutes Spent Total Time Spent with Patient: Total time spent is greater than 50% in coordination of care (as documented) at patient's floor/unit and/or counseling patient: Coding Level of Care Code 98742 Initial Inpt Care Lvl 3 Diagnoses Abdominal abscess HLD (hyperlipidemia) E78.5 HTN (hypertension) I10 CAD (coronary artery disease) I25.10 Pacemaker Z95.0 Chronic anticoagulation Z79.01 Constipation K59.00 Transaminitis R74.01
--- NOTE | 2022-02-23 20:50 | Surgery Consultation ---
Date of Consultation February 23, 2022 Assessment & Plan (1) Abdominal abscess: Patient has been admitted on the hospital service. We recommend proceeding as follows: Patient has been placed on broad-spectrum antibiotics in form of Zosyn which should continue The patient has had blood cultures sent. We will follow for the results of these and antibiotics can be tailored based on these results Recommend holding the patient's Eliquis for the present time Recommend placing the patient on intravenous fluids Recommend following serial labs The case will be discussed with radiology tomorrow morning to see if there is any potential to place a percutaneous drainage catheter. Additional recommendations be forthcoming based on patient's clinical course as it unfolds along with recommendations by radiology after discussion Additional plan as directed by primary service History of Present Illness Reason for Consultation: Intra-abdominal abscess History of Present Illness This is an 81-year-old male who presented to [facility] emergency department secondary to not feeling well for approximately 10 days. When asked to further delineate his symptoms the patient says that he has been having subjective fevers along with some chills. He notes that he has noted worsening generalized fatigue for approximately 10 days. He notes a decreased appetite. He specifically denies any nausea or vomiting. He does report pain in his abdomen in the right lower quadrant. The patient does report that he has had numerous abdominal surgeries. He says he has had his surgeries at [facility]. He had a prostatectomy in October 2019. In April 2020 the patient says that he had bilateral inguinal herniorrhaphies as long with an umbilical hernia. He notes that all 3 hernias were fixed at the same time and he does believe they used mesh for the inguinal component of his hernias. He notes that he had to have a revision of his umbilical hernia in October 2020 and he believes that they utilize mesh at that time. Patient further reports that since his umbilical hernia revision he has had on and off right lower quadrant pain along with issues with constipation. Since arrival to the emergency department the patient has had labs and imaging which I independently reviewed. He did have a CT scan of the abdomen and pelvis. This showed evidence for a walled off fluid collection with enhancement in the right lower quadrant. There is surrounding edema which raises concern the patient had an intra-abdominal abscess. There is no evidence of small bowel obstruction. There is no evidence of free air. A chest x-ray showed no evidence of pneumonia. Labs include a CBC were white blood cell count was 11.9. Hemoglobin and hematocrit were 13.5 and 37.5. Platelet count was noted to be within normal range. Chemistry profile showed sodium and potassium are both normal. The patient's creatinine was normal. BUN had a slight elevation at 27. His lactic acid was nonelevated at 0.8. Patient did have some elevation of his LFTs with an AST of 90 and an ALT of 223. His alkaline phosphatase was 163. Total bilirubin was normal. A C-reactive protein was elevated at 18.3. A procalcitonin was elevated at 0.5. Urinalysis was not indicative of infection. Patient was checked for Lyme disease which was negative. He also had a COVID test that was negative. It is further noteworthy to mention that the patient does report he has coronary artery disease as he had a coronary bypass graft surgery in 1995 also at [facility]. In addition the patient has had a permanent pacemaker. Since the patient's bypass surgery the patient says he is able to lead an active lifestyle performing strenuous yard work. He specifically denies any chest pain or short ness of breath with his daily activities. He says he can routinely walk 20,000 steps a day without difficulty. He follows with [facility]. He says that he has had a stress test since his bypass surgery and to the best of his knowledge there were no concerning findings on this. He does admit that he does not remember what year this was performed. 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 He says he was hospitalized in June 2021 secondary to a kidney stone at which time he developed a left lower extremity DVT. He notes that he had recurrence of this DVT in the left lower extremity in July 2021. For this reason the patient takes Eliquis and he did take his most recent dose this morning. At the time of my interview he was resting comfortably in bed and he was in no distress. Allergies Allergy/AdvReac Type Severity Reaction Status Date / Time No Known Allergies Allergy Unverified 02/23/22 18:07 Home Medications Medication Instructions Recorded Confirmed Type Ocuvite 1 tab PO QAM 02/23/22 02/23/22 History amlodipine 10 mg tablet 10 mg DAILY 02/23/22 02/23/22 History apixaban 5 mg tablet (Eliquis) 5 mg BID 02/23/22 02/23/22 History atorvastatin 20 mg tablet mg DAILY 02/23/22 History lisinopril 20 mg tablet 10 mg DAILY 02/23/22 02/23/22 History Patient History Medical History CAD (coronary artery disease) Chronic anticoagulation Constipation DVT of leg (deep venous thrombosis) HLD (hyperlipidemia) HTN (hypertension) Pacemaker Pacemaker Surgical History (Updated 02/23/22 @ 20:11 by STAN Blunt) H/O hernia repair H/O knee surgery History of appendectomy Hx of CABG Family History (Updated 02/23/22 @ 20:11 by STAN Blunt) Other Family history non-contributory Social History Smoking Status: Never smoker Preferred Language: Malagasy Feels Safe at Home: Yes Review of Systems Constitutional: + fever and + chills Eyes: + corrective lenses Ear, Nose, Mouth, Throat: no ear pain Respiratory: no cough and no dyspnea Cardiovascular: no chest pain and no dyspnea on exertion Gastrointestinal: + abdominal pain and + constipation; no nausea and no vomiting Genitourinary: no dysuria Musculoskeletal: no back pain Integumentary: no rash Neurologic: + generalized weakness; no localized weakness Physical Exam Constitutional: WD/WN, vitals as above Eyes: no conjunctival abnormality Wears glasses ENMT: Ears: no hearing impairment and no external ear abnormality Mouth: no oropharynx abnormality Neck: trachea midline Respiratory: normal respiratory effort; no respiratory distress and no labored breathing Cardiovascular: Rate/Rhythm: regular rate and regular rhythm Vessels: dorsalis pedis pulses present Gastrointestinal (Abdomen): Patient's abdomen is soft, nonrigid, and nondistended. Bowel sounds are present. Patient did have pain with palpation in the right groin just inferior to McBurney's point. There is no rebound tenderness or guarding. There is no pain with palpation over the umbilicus or in the left lower quadrant. Musculoskeletal: No calf tenderness Skin: no rashes Neurologic: moves all extremities Psychiatric: A+Ox3, euthymic affect Results & Data ([facility]) Vital Signs (Past 12 Hours) Vital Signs Temp Pulse Pulse Resp BP BP Pulse Ox 02/23/22 18:19 62 16 132/66 95 02/23/22 16:36 69 18 141/58 H 97 02/23/22 15:32 71 16 121/69 96 02/23/22 14:27 98 02/23/22 14:27 73 18 135/64 98 02/23/22 13:37 36.4 C L 80 16 134/68 99 O2 Del Method 02/23/22 18:19 Room Air 02/23/22 16:36 02/23/22 15:32 Room Air 02/23/22 14:27 Room Air 02/23/22 14:27 Room Air 02/23/22 13:37 Room Air PG Care Time/CCT Total # of Minutes Spent Total Time Spent with Patient: Total time spent is greater than 50% in coordination of care (as documented) at patient's floor/unit and/or counseling patient: Coding Level of Care Code 08195 Inpt Consult Level 5 Diagnoses Abdominal abscess
[2022-02-23] MEDS ORDERED: ACETAMINOPHEN 325 MG TAB PO PRN (22:46)
[2022-02-23] MEDS: ENOXAPARIN INJ 30 MG/0.3 ML SYR SQ SCH (23:17)
[2022-02-23] MEDS: PIPERACILLIN/TAZOBACTAM 3.375 GM in DEXTROSE 5% 100 ML IV SCH (23:20)
[2022-02-24] MEDS ORDERED: LACTATED RINGER'S 1,000 ML IV ONE
[2022-02-24 08:19] LABS: Albumin Level 2.9 gm/dl (3.4-5.0); Bilirubin Direct 0.1 mg/dl (0-0.2); Bilirubin,Total 0.8 mg/dl (0.2-1.0); Total Protein 6.1 gm/dl (6.0-8.3)
--- NOTE | 2022-02-24 08:22 | Hospitalist Progress Note ---
Date of Service February 24, 2022 Assessment & Plan (1) Abdominal abscess: Plan: Fluid collection in the right lower quadrant with CT scan of abdomen and pelvis consistent with abscess - Without evidence of diverticular perforation noted on CT scan with prior surgical history of hernia repairs - WBC mildly elevated, with elevated NLR 5:1, PCT 0.51 - blood cultures pending - CRP elevated at 18.36 - Continue Zosyn - Surgical consultation - NPO after midnight, LR at midinight at 80ml/hr for one liter - His last dose of Eliquis [id number] in the AM- hold eliquis- Lovenox 30mg subq q12 for VTE prophy Imaging with Evidence for a walled off, enhancing fluid collection within the right lower quadrant with surrounding edematous changes present. The findings are most characteristic of an abscess in the RIGHT LOWER QUADRANT WBC 11.9k--> 12.4K but remains afebrile Remains on Zosyn IV, denies any hx MRSA LR @ 80cc/hr Surgery consulted Radiology here unable to get to given location, do not have IR Discussed with patient and general surgery, recs for transfer for IR/drain placement Called [facility], spoke with IR Dr Del Valle, no window/not able to drain --Surgeon Dr Manley willing to f/u outpatient rec IV abx 2 weeks with repeat imaging Called Dr Marquise Baker from IR unable to place drain but could aspirate to assist with cultures/antibiotics. --Called back to speak with Dr Evans from internal medicine to consider accepting in transfer for aspiration/etc. Talked with Dr Evans, consideration for transfer to [place] for Dr Wood for IR and transfer back. They are paging Dr Wood to see about transport for such. --> Accepted by Dr Huitron at [place], 5th floor, room 112D (2) HLD (hyperlipidemia): Plan: Continue statin (3) HTN (hypertension): Plan: Usually well controlled - continue Reinier and Continue amlodopine as hemodynamics allow (4) CAD (coronary artery disease): Plan: History of CABG - continue statin - continue BP control - no symptoms of angina (5) Pacemaker: Plan: Placed 2014 for complete heart block reported by patient - no acute needs (6) Chronic anticoagulation: Plan: For DVT x2 following surgeries - on Eliquis as outpatient- hold - DVT prophy with SCDs and Lovenox 30mg subq q12 (7) Constipation: Plan: Normally stays with fiber, prunes, and miralax worsening since his abdominal pain has gotten worse - add bowel regimine (8) Transaminitis: Plan: No RUQ abdominal pain and normal bili - no evidence of pathology on CT scan of abdomen - possibly reactionary to infection - follow with [facility] in am Admission and Anticipated Discharge Date Admission Date: February 23, 2022 Subjective Eval this morning, pain to RLQ persists but is not as severe or worse than day prior. No nausea/vomiting, fever/chest pain, shortness of breath currently. He is frustrated with care at [place] and when wasn't feeling well/pain/fevers at home he got in the care and traveled over here as [place] is "in disarray" Discussed surgery consult and discussion with radiology and unable to perform here and recommend transfer for IR. He prefers [facility] as back up, but really doesn't want back to [facility]. Will contact them this morning to get the ball rolling. Results & Data Results & Data ([facility]) Vital Signs (Past 12 Hours) Vital Signs Temp Pulse Pulse Resp BP BP Pulse Ox 02/24/22 07:27 02/24/22 07:19 37.2 C 70 18 149/70 H 96 02/24/22 06:54 37.5 C 67 16 152/63 H 96 02/23/22 22:40 37.5 C 70 18 138/67 96 02/23/22 20:43 72 18 124/71 97 O2 Del Method 02/24/22 07:27 Room Air 02/24/22 07:19 Room Air 02/24/22 06:54 Room Air 02/23/22 22:40 Room Air 02/23/22 20:43 Room Air Diagnostic Findings Chest X-Ray 02/23/22 13:52 XR chest 1V portable CLINICAL HISTORY: weakness. Evaluate cardiopulmonary status COMPARISON STUDY: No previous studies for comparison. TECHNIQUE: 1 view of the chest FINDINGS: Single frontal view of the chest demonstrates the heart to be enlarged status post previous cardiothoracic surgery and pacer placement. The lungs are clear of alveolar opacities. There is no evidence for pleural effusion. There is no evidence for vascular congestion. There is no acute osseous pathology. IMPRESSION: 1. No acute cardiopulmonary disease. 2. Cardiomegaly status post previous cardiothoracic surgery and pacer placement. ACT 112: Negative or not required by law. Electronically signed by: Paulo Massey M.D. 02/23/2022 2:38 PM Abdomen/Pelvis CT 02/23/22 14:13 CT abd pelvis IV con only CLINICAL HISTORY: abd pain rlq COMPARISON STUDY: No previous studies for comparison. CT DOSE: 423.17 mGycm TECHNIQUE: Standard CT of the Abdomen and Pelvis was performed with IV contrast. A dose lowering technique was utilized adhering to the principles of ALARA. Contrast Volume: Optiray 300, 89 ml. The patient did not receive oral contrast. FINDINGS: Lung base: The heart is mildly enlarged with pacer in place. There is right basilar atelectasis/scarring present. Abdominal cavity: There is no evidence for abdominal mass, adenopathy or ascites. Liver: There is homogeneous attenuation of the liver parenchyma. There is no evidence for enhancing mass lesion. Spleen: There is homogeneous attenuation of the splenic parenchyma. There is no enhancing mass lesion. Pancreas: There is homogeneous attenuation of the pancreatic parenchyma. There is no evidence for mass lesion or peripancreatic fluid collection. Gall Bladder: The gallbladder is well distended with no evidence for intraluminal calculi, wall thickening or pericholecystic edema. Adrenal glands: The adrenal glands are normal in size and attenuation. There is no evidence for enhancing mass lesion. Kidneys: There is homogeneous attenuation of the renal parenchyma bilaterally. There is a 2 mm nonobstructing right renal calculus. There is no evidence for left renal calculus or hydronephrosis bilaterally. There is no evidence for enhancing mass. Bowel: The bowel loops are normally placed within the abdomen and pelvis without evidence for dilatation or obstruction. There is no evidence for mass lesion. There is mild fecal stasis present involving the right side of the colon. There are no inflammatory changes present. There is no evidence for free air. Bladder: The bladder is within normal limits with no evidence for focal mass, calculus or diverticulum. : There is a walled off, enhancing fluid collection present within the right lower quadrant with surrounding edematous changes present. The findings are most characteristic of an abscess. There is no evidence for pelvic ascites. Vasculature: There is no evidence for aneurysmal dilatation of the abdominal aorta. Atherosclerotic calcification is present. Osseous structures: There is no acute osseous pathology. Mild degenerative changes are seen within the spine. IMPRESSION: 1. Evidence for a walled off, enhancing fluid collection within the right lower quadrant with surrounding edematous changes present. The findings are most characteristic of an abscess. 2. Mild fecal stasis. 3. 2 mm nonobstructing right renal calculus. 4. Additional nonacute findings are delineated above. ACT 112: Negative or not required by law. Electronically signed by: Paulo Massey M.D. 02/23/2022 4:59 PM PG Care Time/CCT Total # of Minutes Spent Total Time Spent with Patient: Total time spent is greater than 50% in coordination of care (as documented) at patient's floor/unit and/or counseling patient: Coding Diagnoses Abdominal abscess HLD (hyperlipidemia) E78.5 HTN (hypertension) I10 CAD (coronary artery disease) I25.10 Pacemaker Z95.0 Chronic anticoagulation Z79.01 Constipation K59.00 Transaminitis R74.01
[2022-02-24] MEDS: PIPERACILLIN/TAZOBACTAM 3.375 GM in DEXTROSE 5% 100 ML IV SCH (08:53)
[2022-02-24 09:00] LABS: Basophils # (auto) 0.04 K/uL (0-0.2); Basophils % (auto) 0.3 %; Eosinophils # (auto) 0.03 K/uL (0-0.50); Eosinophils % (auto) 0.2 %; Hematocrit (blood only) 33.4 % (40.1-51.0); Hemoglobin 12.2 g/dl (14.0-18.0); Immature Granulocytes # (auto) 0.06 K/uL (0.00-0.02); Immature Granulocytes % (auto) 0.5 %; Lymphocytes # (auto) 0.65 K/uL (1.2-3.4); Lymphocytes % (auto) 5.2 %; Mean Corpuscular Hemoglobin 31.4 pg (25.0-34.0); Mean Corpuscular Hgb Conc 36.5 g/dL (32.0-36.0); Mean Corpuscular Volume 86.1 fL (80.0-100.0); Mean Platelet Volume 10.9 fL (9.4-12.4); Monocytes # (auto) 0.91 K/uL (0.24-0.82); Monocytes % (auto) 7.3 %; Neutrophils # (auto) 10.71 K/uL (1.4-6.5); Neutrophils % (auto) 86.5 %; Platelet Count 322 K/uL (130-400); RDW Coefficient of Variation 11.9 % (11.5-14.5); RDW Standard Deviation 37.7 fL (36.4-46.3); Red Blood Count 3.88 M/uL (4.63-6.08)
[2022-02-24] MEDS ORDERED: POLYETHYLENE (MIRALAX) 17 GM PACK PO SCH (09:00)
[2022-02-24] MEDS ORDERED: DOCUSATE SODIUM/SENNA 50/8.6MG TAB PO SCH (09:00)
[2022-02-24] MEDS ORDERED: ATORVASTATIN 20 MG TAB PO SCH (09:00)
[2022-02-24] MEDS ORDERED: amLODIPine BESYLATE 5 MG TAB PO SCH (09:00)
[2022-02-24] MEDS ORDERED: lisinopril 10 MG TAB PO SCH (09:00)
--- NOTE | 2022-02-24 09:13 | Electrocardiogram Report ---
Test Reason : Blood Pressure : / mmHG Vent. Rate : 067 BPM Atrial Rate : 067 BPM P-R Int : 250 ms QRS Dur : 102 ms QT Int : 388 ms P-R-T Axes : 032 -23 006 degrees QTc Int : 409 ms Sinus rhythm with 1st degree A-V block Otherwise normal ECG No previous ECGs available Confirmed by Wyatt Bains ([id number]) on 02/24/2022 9:12:57 AM Referred By: REFERRED SELF Confirmed By:Wyatt Bains
--- NOTE | 2022-02-24 09:56 | Surgery Progress Note ---
Date of Service February 24, 2022 Assessment & Plan (1) Abdominal abscess: Plan: Etiology unclear. Unusual presentation. Will discuss with radiology for potential window for drainage. This would be ideal if possible. Continue IV antibiotics. Surgery should be a last resort considering the amount of mesh and prior surgeries as well as comorbidities. If unable to drain by radiology would recommend 48 hours of IV antibiotics and reevaluate how he is doing clinically. If he does not improve with IV antibiotics alone we might require surgical intervention. If he does improve clinically we could reevaluate with a CT scan in 1 to 2 weeks as an outpatient. Discussed with primary service (2) Abdominal pain: (3) Leukocytosis: (4) CAD (coronary artery disease): (5) Pacemaker: (6) Chronic anticoagulation: Admission and Anticipated Discharge Date Admission Date: February 23, 2022 Subjective Patient seen. Continues to complain of some right lower quadrant discomfort as well as overall fatigue. States it started about 10 days ago without an inciting incident. Physical Exam Constitutional: WD/WN, vitals as above no acute distress and not ill appearing Eyes: PERRL, conjunctivae normal, anicteric sclerae EOM intact bilaterally ENMT: external ear and nose normal, oropharynx normal Ears: no hearing impairment Neck: trachea midline, no thyromegaly Respiratory: normal respiratory effort; no respiratory distress and does not use accessory muscles Cardiovascular: Rate/Rhythm: regular rate and regular rhythm Gastrointestinal (Abdomen): Soft. No peritonitis. Positive suprapubic tenderness to palpation. Skin: no rashes, warm and dry Psychiatric: Orientation: alert, oriented x 3 and cooperative Results & Data ([facility]) Vital Signs (Past 12 Hours) Vital Signs Temp Pulse Resp BP BP Pulse Ox O2 Del Method 02/24/22 07:27 Room Air 02/24/22 07:19 37.2 C 70 18 149/70 H 96 Room Air 02/24/22 06:54 37.5 C 67 16 152/63 H 96 Room Air 02/23/22 22:40 37.5 C 70 18 138/67 96 Room Air PG Care Time/CCT Total # of Minutes Spent Total Time Spent with Patient: Total time spent is greater than 50% in coordination of care (as documented) at patient's floor/unit and/or counseling patient: Coding Level of Care Code 94034 Subseq Hosp Care Lvl 3 Diagnoses Abdominal abscess Abdominal pain R10.9 Leukocytosis D72.829 CAD (coronary artery disease) I25.10 Pacemaker Z95.0 Chronic anticoagulation Z79.01
[2022-02-24] MEDS: ENOXAPARIN INJ 30 MG/0.3 ML SYR SQ SCH (11:27)
[2022-02-24 13:02] LABS: BUN Creatinine Ratio 16.2 (10-20); Calcium 8.8 mg/dl (8.5-10.1); Creatinine Clr Calc Pharmacy 47.9 ml/min; Est GFR (Non-African American) 71.6 ml/min
--- NOTE | 2022-02-24 14:55 | Discharge Summary ---
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 Patient comes to the hospital for 10 day history of right lower quad abdominal pain, fevers, and fatigue. Patient states that he noticed the pain getting worse over the past 10 days, but was tolerable. He reports that yesterday it got worse and completely "wiped him out". He endorses fevers over the past 48 hours feeling hot and waking up in sweats for the past 3-4 days. Patient endorses that since his last hernia repair in 09/03 and 11/01 that he has noticed the pain in his right lower quadrant and just never felt right after that. Patient has history of 2 inguinal hernia repairs, and 1 umbilical hernia repair with redo 11/01. Patient has received all his surgical care at [facility] with Dr. Danielson and Katya. Patient states that he normally remains active and lifting wood and yard debris without any difficulty. He denies having onset of worsening pain with doing any work or lifting. In the EMD the patient had routine labs performed. He had CT scan of his abdomen/pelvis with IV contrast. This resulted with characteristics of a likely abscess in the right lower quadrant, roughly 4x3. Patient is tender in the area. Patient was given Zosyn. Hospitalist was consulted for admission. Blood cultures were then ordered. CRP and Lactate ordered as well as PCT. Surgery big machine consultant discussed with EMD provider and admission recommended. Patient will be admitted continue IV abx await culture results, will make NPO after MN with surgical consultation. Will hold his Eliquis and place on BID Lovenox VTE prophy dose. Patient is physically active which he reports doing brisk yard work with lifting. He has not had any chest pain or dyspnea with this. COVID test on admission is: NEGATIVE Admission Exam Per Admitting Provider General: awake, alert, fatigued appearing male Head: Normocephalic, atraumatic ENT: PERRLA, EOMI, no pharyngeal exudate, mucous membranes dry Neuro: AAO x 3, speech clear and appropriate, strength intact bilaterally 5/5, sensation intact and equal all extremities and dermatomes, no pronator drift Chest: equal rise and fall of the chest, no accessory muscle use, no heaves or thrills, Clear to auscultation, on room air, Cardiac: Regular rate and rhythm, telemetry reviewed, skin warm dry, cap refill <3 seconds, peripheral pulses +2 no JVD, no murmur, no edema GI: NABS x 4 quadrants, soft, tender to palpation right groin, no palpable mass, no rebound : Spontaneously voiding, no pain, no CVA tenderness, Extremities: Normal inspection, no peripheral edema or erythema, calfs nontender to palpation Psych: Normal mood and affect Skin: no rash or erythema Principal Diagnosis Intra-abdominal abscess, right lower quadrant Discharge Exam General: WD/WN thin elderly male sitting up in bed, NAD HEENT: head normocephalic, atraumatic, mm slightly dry, trachea midline without deviation Resp: CTAB, no w/c/r, on room air 97% Chest: prior sternotomy scar CV: RRR, faint systolic murmur, no rub/gallop, no calf tenderness, cap refill wnl GI: +BS, soft, nontender, no rebound/rigidity RIGHT GROIN with prior hernia scar, well healed, palpable abscess to groin, slightly tender, non-erythematous MSK/Neuro: moves all extremities, no focal deficit, full strength throughout Psych: alert, oriented x 3, pleasant and cooperative, family at bedside Skin: warm, dry Discharge Data Allergies Allergy/AdvReac Type Severity Reaction Status Date / Time No Known Allergies Allergy Unverified 02/23/22 18:07 Consultations 02/23/22 18:00 ED Decision to Admit Stat 02/23/22 22:46 Consult General Surgery Routine Ordered Studies Chest X-Ray 02/23/22 13:52 XR chest 1V portable CLINICAL HISTORY: weakness. Evaluate cardiopulmonary status COMPARISON STUDY: No previous studies for comparison. TECHNIQUE: 1 view of the chest FINDINGS: Single frontal view of the chest demonstrates the heart to be enlarged status post previous cardiothoracic surgery and pacer placement. The lungs are clear of alveolar opacities. There is no evidence for pleural effusion. There is no evidence for vascular congestion. There is no acute osseous pathology. IMPRESSION: 1. No acute cardiopulmonary disease. 2. Cardiomegaly status post previous cardiothoracic surgery and pacer placement. ACT 112: Negative or not required by law. Electronically signed by: Paulo Massey M.D. 02/23/2022 2:38 PM Abdomen/Pelvis CT 02/23/22 14:13 CT abd pelvis IV con only CLINICAL HISTORY: abd pain rlq COMPARISON STUDY: No previous studies for comparison. CT DOSE: 423.17 mGycm TECHNIQUE: Standard CT of the Abdomen and Pelvis was performed with IV contrast. A dose lowering technique was utilized adhering to the principles of ALARA. Contrast Volume: Optiray 300, 89 ml. The patient did not receive oral contrast. FINDINGS: Lung base: The heart is mildly enlarged with pacer in place. There is right basilar atelectasis/scarring present. Abdominal cavity: There is no evidence for abdominal mass, adenopathy or ascites. Liver: There is homogeneous attenuation of the liver parenchyma. There is no evidence for enhancing mass lesion. Spleen: There is homogeneous attenuation of the splenic parenchyma. There is no enhancing mass lesion. Pancreas: There is homogeneous attenuation of the pancreatic parenchyma. There is no evidence for mass lesion or peripancreatic fluid collection. Gall Bladder: The gallbladder is well distended with no evidence for intraluminal calculi, wall thickening or pericholecystic edema. Adrenal glands: The adrenal glands are normal in size and attenuation. There is no evidence for enhancing mass lesion. Kidneys: There is homogeneous attenuation of the renal parenchyma bilaterally. There is a 2 mm nonobstructing right renal calculus. There is no evidence for left renal calculus or hydronephrosis bilaterally. There is no evidence for enhancing mass. Bowel: The bowel loops are normally placed within the abdomen and pelvis without evidence for dilatation or obstruction. There is no evidence for mass lesion. There is mild fecal stasis present involving the right side of the colon. There are no inflammatory changes present. There is no evidence for free air. Bladder: The bladder is within normal limits with no evidence for focal mass, calculus or diverticulum. : There is a walled off, enhancing fluid collection present within the right lower quadrant with surrounding edematous changes present. The findings are most characteristic of an abscess. There is no evidence for pelvic ascites. Vasculature: There is no evidence for aneurysmal dilatation of the abdominal aorta. Atherosclerotic calcification is present. Osseous structures: There is no acute osseous pathology. Mild degenerative changes are seen within the spine. IMPRESSION: 1. Evidence for a walled off, enhancing fluid collection within the right lower quadrant with surrounding edematous changes present. The findings are most characteristic of an abscess. 2. Mild fecal stasis. 3. 2 mm nonobstructing right renal calculus. 4. Additional nonacute findings are delineated above. ACT 112: Negative or not required by law. Electronically signed by: Paulo Massey M.D. 02/23/2022 4:59 PM Hospital Course (1) Abdominal abscess: Fluid collection in the right lower quadrant with CT scan of abdomen and pelvis consistent with abscess. ?Also, hx prostate ca, consideration for lymphocele? need sample Of note, recent inguinal hernia repair (laparoscopic) earlier this year, redone in October CTAP with: * Evidence for a walled off, enhancing fluid collection within the right lower quadrant with surrounding edematous changes present. The findings are most characteristic of an abscess in the RIGHT LOWER QUADRANT WBC 11.9k--> 12.4K but remains afebrile and reported feeling better. CRP 18.36 Placed on Zosyn, continued. No hx MRSA. VSS and reports feeling mildly better than admit BCx NGTD His last dose of Eliquis [id number] in the AM- hold eliquis- Lovenox 30mg subq q12 for VTE prophy LR @ 80cc/hr Surgery consulted Radiology here unable to get to given location, do not have IR recommended tx for IR and placement of drain if possible Discussed with patient and general surgery, recs for transfer for IR/drain placement Called [facility], spoke with IR Dr Del Valle, no window/not able to drain--Surgeon Dr Manley willing to f/u outpatient rec IV abx 2 weeks with repeat imaging Called Dr Marquise Baker from IR unable to place drain but could aspirate to assist with cultures/antibiotics. --Called back to speak with Dr Evans from internal medicine to consider accepting in transfer for aspiration/etc. Talked with Dr Evans who relayed case to Dr Huitron at [facility]. I spoke with Dr Jamison from IR [facility] and agreeable for aspiration and will attempt drain placement if possible Accepted by Dr Huitron at [facility], 5th floor, room 112D and transportation currently being arranged (2) HLD (hyperlipidemia): Continued statin (3) HTN (hypertension): Usually well controlled, on lisinopril 10mg daily, amlodipine 10mg daily (4) CAD (coronary artery disease): History of CABG 1995 [facility] [place] - continued statin, BB - no symptoms of angina or SOB (5) Pacemaker: Placed 2014 for complete heart block reported by patient - no acute needs (6) Chronic anticoagulation: For DVT x2 following surgeries - on Eliquis as outpatient- held for possible intervention and placed on SCDs/Lovenox SQ 30mg Q12 while inaptient (7) Constipation: Normally moves with fiber, prunes, and Miralax worsening since his abdominal pain has gotten worse, bowel regimen added (8) Transaminitis: No RUQ abdominal pain and normal bili - no evidence of pathology on CT scan of abdomen ?reactive 2nd to infection --> repeat LFTs improving AST 90--> 40, ALT 223--> 149, AL 163--> 135 Would continue to trend Plan Accepted to [facility] for IR through Dr Jamison under service of Dr Huitron from internal medicine. 5th Floor, Room 112D Transportation being arranged Total Time Total Time Spent Total Time Spent (In Minutes): 195 Discharge Plan Discharge Items Patient Disposition: Transfer Acute Care Hospital Reason For Visit: PELVIC/ABDOMEN ABSCESS Discharge Diagnosis: Intrapelvic Abscess Goals: You have been hospitalized for an acute medical problem. During your stay at [facility], we have made an effort to correct the problem that brought you to the hospital while keeping you as comfortable as possible. Medications were used to bring your condition under control and your discharge instructions will include directions for any medications you should take after leaving the hospital. Please make sure you see your Primary Care Provider as part of your follow up plan. Activity: As commented below Non-emergency contact: Primary Care Provider Call non-emergency contact if: you have any medication questions Follow-up/Referrals: Gage Saul M.D. [Primary Care Provider] - Diet: Nothing by Mouth Diet Comment: NPO after midnight Addtl Attending Provider Instructions: You have been admitted for an intraabdominal abscess. Coordination with multiple facilities was undertaken and arrangements have been made to persue interventional radiology for drainage and culture to help with healing (hopefully they may be able to keep a drain in place, but at least will have culture data) and identify bacterial cause to tailor antibiotics. You should follow up with your primary care provider after discharge from [facility] to monitor your progress. It has been a pleasure being a part of the medical team providing for you while you have been in the hospital. Best wishes! Pending Studies at Discharge: Yes Studies:: Blood cultures-- no growth to date Stand-Alone Forms: My [facility] Skilled Items Patient informed of condition?: Yes DNR: No Discharge Level of Care: Other Communicable Disease: No Discharge Prognosis: Stable Lines: Peripheral IV Urinary Catheter: No Medications and DC Order Prescriptions: Continued lisinopril 20 mg tablet 10 mg DAILY amlodipine 10 mg tablet 10 mg DAILY Eliquis 5 mg tablet 5 mg BID atorvastatin 20 mg tablet DAILY Ocuvite 1 tab PO QAM Discharge Orders: Discharge Order (Routine); Ordered 02/24/22 Ordered By: Suzie Jacome/Other Patient Handouts: Abscess Abx Tx Admission Data Admit Date/Time: 02/23/22 19:50 Attending Provider: Rosa Isela Mishra Admit Provider: Anastasiia Quispe Primary Care Provider: Gage Saul Other Providers: Josue Chisholm Matthew D. Supervising Physician Co-Signing Physician Notes PA Supervision Note: I personally saw and examined the patient. I verified all pollack points and agree with ALYCIA Garcia with the following exceptions and/or additions: S-patient still having right lower quadrant pain, is being transferred out for IR procedure for abscess drainage O- Vitals reviewed Gen: AAOx3, NAD HEENT: Anicteric sclerae, EOMI CV: RRR no mgr nl S1S2 Pulm: CTAB no wcr Abd: +BS soft positive tenderness palpation right lower quadrant with mild guarding, no rebound ND no masses or hernias Ext: No edema Skin: No rashes, warm/dry Neuro: Full strength throughout [id number] male here with RLQ intra-abdominal abscess, need surgical drainage Stable for transfer to [facility] Coding Level of Care Code D/C DAY MANAGEMENT >30 MINS Diagnoses Abdominal abscess HLD (hyperlipidemia) E78.5 HTN (hypertension) I10 CAD (coronary artery disease) I25.10 Pacemaker Z95.0 Chronic anticoagulation Z79.01 Constipation K59.00 Transaminitis R74.01
--- NOTE | 2022-03-04 12:16 | Coding Query ---
CODING QUERY To promote full compliance with coding requirements relating to patient care, provider participation is requested in all cases of floor finisher helper uncertainty. Please assist us with the question(s) below: Coding Question(s): There is documentation of Intra-abdominal Abscess, right lower quadrant, and H&P and Admission HPI document, " Patient endorses that since his last hernia repair in 09/03 and 11/01 that he has noticed the pain in his right lower quadrant and just never felt right after that. Patient has history of 2 inguinal hernia repairs, and 1 umbilical hernia repair with redo 11/01. Patient has received all his surgical care at [facility] with Dr. Danielson and Katya.", and the Surgical Consultation documents, "The patient does report that he has had numerous abdominal surgeries. He says he has had his surgeries at [facility]. He had a prostatectomy in October 2019. In April 2020 the patient says that he had bilateral inguinal herniorrhaphies as long with an umbilical hernia. He notes that all 3 hernias were fixed at the same time and he does believe they used mesh for the inguinal component of his hernias. He notes that he had to have a revision of his umbilical hernia in October 2020 and he believes that they utilize mesh at that time. Patient further reports that since his umbilical hernia revision he has had on and off right lower quadrant pain along with issues with constipation", and the 02/24 Surgery Progress Note documents, "Abdominal abscess: Plan: Etiology unclear. Unusual presentation", and the Discharge Summary documents, "Abdominal abscess: Fluid collection in the right lower quadrant with CT scan of abdomen and pelvis consistent with abscess. ?Also, hx prostate ca, consideration for lymphocele? need sample Of note, recent inguinal hernia repair (laparoscopic) earlier this year, redone in October". Please specify below, in your clinical opinion, regarding the Intra-abdominal abscess, right lower quadrant. ( x ) Intra-abdominal abscess, right lower quadrant is likely due to Postprocedural Complication/Infection ( ) Intra-abdominal abscess, right lower quadrant is NOT likely due to Postprocedural Complication/Infection ( ) Other: Please Specify Physician's Response(s): Thank you Liliana Merino Principal Diagnosis: "that condition established after study, to be chiefly responsible for occasioning the admission of the patient to the hospital for care." Co-Existing Principal Diagnosis: "when two or more diagnoses equally meet the criteria for principal diagnosis as determined by the circumstances of admission, diagnostic work up, and/or therapy provided, and the Alphabetic Index, Tabular List, or another coding guideline does not provide sequencing direction, any one of the diagnoses may be sequenced first." "When the physician has documented what appears to be a current diagnosis in the body of the record, but has not included the diagnosis in the final diagnostic statement, the physician should be asked whether the diagnosis should be added." (Source Coding Clinic 2 QTR90. p3-4) DHRUV
== END 2022-02-24 16:27 | disposition short-term general hospital (02) | DRG 862 ==
LOC: ED 13:36 → SUATTDRO 19:50 → EDINP 19:50 → 3W 22:09